=== PATIENT | female | born 1970 | race African-American/Black ===

== ENCOUNTER 2021-09-30 04:29 | Inpatient (IN) | payer OTHER ==
[2021-09-29 11:09] VITALS: BMI 32.4
[2021-09-30] MEDS ORDERED: BUPIVACAINE LIPOSOME/PF (EXPAREL) 266 MG/20 ML VIAL ONE (07:06)
[2021-09-30] MEDS ORDERED: BUPIVACAINE HCL/PF 0.5% (5MG/ML) 10 ML VIAL ONE (07:07)
[2021-09-30] MEDS ORDERED: MIDAZOLAM HCL 2 MG/2 ML SINGLE DOSE VIAL ONE ×2 (07:08)
[2021-09-30] MEDS ORDERED: CEFAZOLIN 2 GM in DEXTROSE 5%-WATER - 100 ML IVPB ONE (07:56)
[2021-09-30] MEDS ORDERED: ONDANSETRON 4 MG/2 ML VIAL IVPUSH PRN (08:26)
[2021-09-30] MEDS ORDERED: ceFAZolin SODIUM 1 GM VIAL ONE (08:28)
[2021-09-30] MEDS ORDERED: ceFAZolin SODIUM 1 GM VIAL IVPB ONE (08:28)
[2021-09-30] MEDS ORDERED: SODIUM CHLORIDE 0.9% P/F 10 ML VIAL IJ ONE (08:29)
[2021-09-30] MEDS ORDERED: ROCURONIUM BROMIDE 50 MG/5 ML SYRINGE ONE (09:14)
[2021-09-30] MEDS ORDERED: GLYCOPYRROLATE 0.2 MG/1 ML VIAL ONE (09:32)
[2021-09-30] MEDS ORDERED: NEOSTIGMINE METHYLSULFATE 0.5 MG/1 ML - 10 ML MDV ONE (09:32)
[2021-09-30] MEDS ORDERED: KETOROLAC TROMETHAMINE 30 MG/1 ML VIAL ONE (09:46)
[2021-09-30] MEDS ORDERED: oxyCODONE HCL 5 MG TABLET PO PRN ×4 (10:28→10:53)
[2021-09-30] MEDS ORDERED: ACETAMINOPHEN 325 MG TABLET (FP) PO PRN (10:28)
[2021-09-30] MEDS ORDERED: IBUPROFEN 800 MG/8 ML IJ IVPB PRN (10:28)
[2021-09-30] MEDS ORDERED: HYDROmorphone HCl 2 MG/ML VIAL ONE (10:52)
[2021-09-30] MEDS ORDERED: HYDROmorphone HCl 2 MG/ML VIAL IVPB PRN (10:53)
[2021-09-30] MEDS: HYDROmorphone HCl 2 MG/ML VIAL IVPUSH ONE ×2 (10:55→11:15)
[2021-09-30] MEDS: ACETAMINOPHEN 1000 MG/100 ML BAG IVPB SCH ×3 (11:00→23:29)
[2021-09-30] MEDS: LACTATED RINGERS SOLUTION 1,000 ML IV SCH ×2 (13:00→13:42)
[2021-09-30] MEDS: CEFAZOLIN 2 GM in DEXTROSE 5%-WATER - 100 ML IVPB SCH (19:43)
[2021-09-30] MEDS: oxyCODONE HCL 10 MG SUSTAINED ACTING TABLET PO SCH (21:03)
[2021-10-01] MEDS: LACTATED RINGERS SOLUTION 1,000 ML IV SCH (02:24)
[2021-10-01] MEDS: CEFAZOLIN 2 GM in DEXTROSE 5%-WATER - 100 ML IVPB SCH (03:20)
[2021-10-01] MEDS: ACETAMINOPHEN 1000 MG/100 ML BAG IVPB SCH (06:00)
[2021-10-01 09:18] LABS: BASO % 0.2 % (0-2.0); HEMATOCRIT 29.3 % (32.4-45.2); HEMOGLOBIN 10.2 GM/dL (10.7-15.3); LYMPH % 11.1 % (8-40); MCH 28.8 pg (25.7-33.7); MCHC 34.8 g/dl (32.0-36.0); MEAN CELL VOLUME 82.6 fl (80-96); MEAN PLT VOLUME 8.4 fl (7.5-11.1); MONO % 8.4 % (3.8-10.2); NEUT % 80.3 % (42.8-82.8); PLATELET COUNT 242 10^3/uL (134-434); RBC 3.55 M/mm3 (3.60-5.2)
[2021-10-01] MEDS ORDERED: PT OWN MED DRAWER 7, Y5N ONE (10:16)
[2021-10-01] MEDS: oxyCODONE HCL 10 MG SUSTAINED ACTING TABLET PO SCH (10:28)
[2021-10-01] MEDS ORDERED: IBUPROFEN 600 MG TABLET (FP) PO PRN (11:00)
[2021-10-01] MEDS: ACETAMINOPHEN 500 MG TABLET (FP) PO SCH ×2 (12:24→17:20)
[2021-10-01 14:02] VITALS: BP 114/61; PULSE 72; TEMP 98.1
== END 2021-10-01 17:47 | disposition home or self-care (01) | DRG 743 ==
LOC: J2C 04:29 → J8W 13:08
PROVIDERS: ADMIT Obstetrics & Gynecology; ATTEND Obstetrics & Gynecology
PROC: 0UB70ZZ Excision of Bilateral Fallopian Tubes, Open Approach (ICD-10-PCS; 2021-09-30)
PROC: 0UB20ZZ Excision of Bilateral Ovaries, Open Approach (ICD-10-PCS; 2021-09-30)
PROC: 0UT90ZL Resection of Uterus, Supracervical, Open Approach (ICD-10-PCS; principal; 2021-09-30 08:00)
DX: D25.9 Leiomyoma of uterus, unspecified (principal); N92.0 Excessive and frequent menstruation with regular cycle; R10.2 Pelvic and perineal pain
CPT/HCPCS: 36415; 81025; 85025; 88307-TC; 94010; 94760; J0131